=== PATIENT | male | born 1995 | race Caucasian/White ===

== ENCOUNTER 2021-12-31 09:41 | Emergency (ER) | payer MEDICAID ==
[~2021-12-31] VITALS: Ht 177.8 cm; Wt 79.4 kg
[2021-12-31 10:28] VITALS: BP_SYST 119
[2021-12-31] MEDS ORDERED: TRAM50TA2 PO (12:26)
[2021-12-31] MEDS ORDERED: IBUP-1971 PO (12:26)
[2021-12-31 12:40] VITALS: BP_SYST 112
== END 2021-12-31 12:40 | disposition home or self-care (01) ==
LOC: SED 09:41
DX: S93.602A Unspecified sprain of left foot, initial encounter (principal); W18.42XA Slipping, tripping and stumbling without falling due to stepping into hole or opening, initial encounter; Y93.89 Activity, other specified; Y92.89 Other specified places as the place of occurrence of the external cause; Y99.8 Other external cause status
CPT/HCPCS: 99283